=== PATIENT | female | born 1930 | race Caucasian/White ===

== ENCOUNTER 2018-06-11 17:31 | Emergency (ER) | payer MEDICARE, MEDICAID ==
[~2018-06-11] VITALS: Ht 165.1 cm; Wt 54.0 kg
[2018-06-11] MEDS ORDERED: SODIUM CHLORIDE 0.9% 1,000 ML IV ONE (18:21)
[2018-06-11] MEDS ORDERED: PRIM50TA31 MT (18:51)
[2018-06-11 18:52] LABS: BASOPHILS % 1.1 % (0.0-2.0); EOSINOPHILS % 0.2 % (0.0-5.0); HEMOGLOBIN. 11.1 g/dL (12.0-16.0); LYMPHOCYTES % 14.4 % (20.0-50.0); MEAN CORPUSCULAR HEMOGLOBIN 31.5 pg (28.0-32.0); MEAN CORPUSCULAR VOLUME 96.3 fL (81.0-99.0); MEAN PLATELET VOLUME 8.8 fl (7.4-10.4); MONOCYTES % 7.9 % (2.0-8.0); NEUTROPHILS % 76.4 % (40.0-76.0); PLATELET 297 x1000/uL (130-400); RED BLOOD CELL COUNT 3.53 mill/uL (4.2-5.4); RED CELL DISTRIBUTION WIDTH 12.9 % (11.6-14.6)
[2018-06-11] MEDS ORDERED: MULT-1116 MT (18:56)
[2018-06-11] MEDS ORDERED: ERGO400C MT (18:56)
[2018-06-11] MEDS ORDERED: CLOP75TA16 MT (18:56)
[2018-06-11] MEDS ORDERED: ASPI-1079 PO (18:56)
[2018-06-11] MEDS ORDERED: FURO20TA4 MT (18:56)
[2018-06-11] MEDS ORDERED: CLOP75TA33 MT (18:56)
[2018-06-11] MEDS ORDERED: METO25TA6 MT (18:56)
[2018-06-11] MEDS ORDERED: LOSA25TA12 MT (18:56)
[2018-06-11] MEDS ORDERED: FERR-71 MT (18:56)
[2018-06-11] MEDS ORDERED: LEVO25TA7 MT (18:56)
[2018-06-11] MEDS ORDERED: FISH MT (18:56)
[2018-06-11] MEDS ORDERED: SPIR25TA6 MT (18:56)
[2018-06-11 18:59] LABS: CHLORIDE 102 mEq/L (98-107)
[2018-06-11 21:21] LABS: CLARITY URINE CLEAR (CLEAR); COLOR URINE DARK YELLOW (YELLOW); KETONES URINE TRACE (NEGATIVE); LEUKOCYTE ESTERASE URINE TRACE (NEGATIVE); NITRITE URINE NEGATIVE (NEGATIVE); OCCULT BLOOD URINE NEGATIVE (NEGATIVE); PROTEIN URINE 1+ (NEGATIVE); SPECIFIC GRAVITY URINE 1.024 (1.005-1.030)
[2018-06-11] MEDS ORDERED: CEFTRIAXONE 1 G PREMIX 50 ML IV ONE (21:45)
[2018-06-11] MEDS ORDERED: LEVOFLOXACIN 250MG TABLET PO ONE (21:45)
[2018-06-11 22:08] VITALS: BP 155/72
== END 2018-06-11 22:23 | disposition home or self-care (01) ==
LOC: ER 17:31
DX: N39.0 Urinary tract infection, site not specified (principal); R00.0 Tachycardia, unspecified; R06.02 Shortness of breath; N28.9 Disorder of kidney and ureter, unspecified
CPT/HCPCS: 36415; 71045; 80053; 81003; 83605; 84145; 84484; 85025; 85610; 87040; 87086; 93005; 99285; J7030

== ENCOUNTER 2020-12-01 17:42 | Emergency (ER) | payer MEDICARE, MEDICAID ==
[~2020-12-01] VITALS: Ht 152.4 cm; Wt 50.0 kg
[~2020-12-01 17:42] MED LIST: ALLO100T PO; ASPI-1079 PO; BUDE0.25 NEB; CLOP-31 PO; FERR-71 PO; FORM20VI IH; FURO20TA4 PO; LEVO125T8 PO; LOVA10TA54 PO; METO25TA6 PO; MULT-1116 PO; PRIM50TA31 PO; PROT40 PO; SPIR25TA6 PO; SUCR1TAB30 MT
[2020-12-01] MEDS ORDERED: SODIUM CHLORIDE 0.9% 1,000 ML IV ONE (18:45)
[2020-12-01 19:43] LABS: BASOPHILS % 0.8 % (0.0-2.0); HEMATOCRIT. 27.2 % (36.0-48.0); LYMPHOCYTES % 11.6 % (20.0-50.0); MEAN CORPUSCULAR HEMOGLOBIN 30.9 pg (28.0-32.0); MEAN CORPUSCULAR VOLUME 92.9 fL (81.0-99.0); MEAN PLATELET VOLUME 9.5 fl (7.4-10.4); MONOCYTES % 9.8 % (2.0-8.0); NEUTROPHILS % 76.8 % (40.0-76.0); PLATELET 233 x1000/uL (130-400); RED BLOOD CELL COUNT 2.93 mill/uL (4.2-5.4); RED CELL DISTRIBUTION WIDTH 15.5 % (11.6-14.6)
[2020-12-01 19:49] LABS: CHLORIDE 106 mEq/L (98-107)
[2020-12-01 22:43] LABS: CLARITY URINE CLEAR (CLEAR); COLOR URINE YELLOW (YELLOW); KETONES URINE NEGATIVE (NEGATIVE); LEUKOCYTE ESTERASE URINE NEGATIVE (NEGATIVE); NITRITE URINE NEGATIVE (NEGATIVE); OCCULT BLOOD URINE NEGATIVE (NEGATIVE); PROTEIN URINE NEGATIVE (NEGATIVE); SPECIFIC GRAVITY URINE 1.017 (1.005-1.030)
[2020-12-02 00:50] VITALS: BP 130/82
== END 2020-12-02 01:06 | disposition home or self-care (01) ==
LOC: ER 17:42 → CANBEDREQ 12-02 05:01
DX: Z04.3 Encounter for examination and observation following other accident (principal); Z91.81 History of falling; I10 Essential (primary) hypertension; J44.9 Chronic obstructive pulmonary disease, unspecified; F03.90 Unspecified dementia, unspecified severity, without behavioral disturbance, psychotic disturbance, mood disturbance, and anxiety; Z79.899 Other long term (current) drug therapy
CPT/HCPCS: 36415; 71045; 80053; 81003; 84484; 85025; 93005; 96360; 99285; J7030